=== PATIENT | female | born 1970 | race Caucasian/White ===

== ENCOUNTER → 2017-11-24 | Outpatient (CLI) | payer BC ==
[~2017-11-24] MED LIST: AMARYL4 MG PO; COZAAR 25 MG TA25 M2 PO; GLUCOTROL5 MG PO; IBUPROFEN 800800 M1 PO; LIPITOR 20 MG T20 M1 PO; NAPROSYN500 MG PO; NORFLEX100 MG PO; SERTRALINE HCL50 MG PO; TYLENOL EXTRA500 MG PO; VICTOZA0.6 MG/0.1 SUBQ
--- NOTE | ~2017-11-24 | O ---
[facility] [address] [address] OPERATIVE REPORT Name: JOANA SHEPPARD Room #: REG [facility].#: [id number] Admission: 11/24/17 Attend Phys: Freddie Renee MD Discharge: Date of : 68 Report #: [id number] THIS REPORT FOR: //name// CC: [facility] physician/PCP Freddie Renee CLINICAL HISTORY: A 47-year-old white female with moderate mediastinal adenopathy. Diagnostic bronchoscopy was performed. POSTOPERATIVE DIAGNOSIS: Normal airways. DESCRIPTION OF PROCEDURE: Following obtained consent and risks and benefits being explained to the patient, which include infection, bleeding and pneumothorax, the procedure performed in the endoscopy suite. The patient received 2% aerosolized lidocaine therapy along with 1% and 2% to the upper airways. She was also given total of 4 mg of Versed, 100 mcg of fentanyl IV push. Then, a flexible fiberoptic bronchoscope was then introduced through the left naris without difficulty. Epiglottis was normal. Vocal cords normal. Trachea was normal. Mouna was normal. Left mainstem bronchus, left upper lobe and left lower lobe was normal. Right mainstem bronchus, right upper lobe, right middle lobe and right lower lobe was normal. Transbronchial needle aspirate biopsy was performed in the subcarinal area. There were approximately 7 passes. We were able to obtain adequate specimen on 5 of the passes. There was very minimal bleeding noted on the needle aspirate biopsy. Otherwise, no complications noted. Vital signs and saturation throughout the study were within normal range. The bronchial needle aspirate specimens will be sent for cytology. There were approximately 5 slides made. <ELECTRONICALLY SIGNED> By: Freddie Renee MD 11/25/17 1518 1828 10 Freddie Renee MD /nt
--- NOTE | ~2017-11-24 | PATH ---
[facility] [address] [place] [address] PATHOLOGY RPT PROCEDURE Name: JOANA SHEPPARD Room #: REG [facility]..#: [id number] Admission: 11/24/17 Date of : 68 Discharge: Report #: [id number] Path Case #: [id number] Note [facility] Accession Number: [id number] TESTS RESULT FLAG UNITS REF RANGE LAB Clinician Provided Cytology Information No. of containers..01 Slide Source: SUBCARNIA NEEDLE DIAGNOSIS: 02 SUBCARINA NEEDLE ASPIRATE NEGATIVE FOR MALIGNANT CELLS. SCANT CELLULARITY. REACTIVE BRONCHIAL CELLS ARE PRESENT. Signed out by: 02 Isabel Gilliam MD, Pathologist NPI- [id number] Performed by: 01 Paulie Mae, Laborer Driver (ASCP) FLAG LEGEND: L-Low Normal,H-High Normal,LL-Alert Low,HH-Alert High <-Panic Low,>-Panic High,A-Abnormal,AA-Critical Abnormal Performed at: [address] [place] [address] Elian Mauro MD, [address] [address] Isabel Gilliam MD, Specimen Comment: A courtesy copy of this report has been sent to Specimen Comment: [phone]. Specimen Comment: Report sent to Specimen Comment: A duplicate report has been generated due to demographic updates. Performed at: [address], [place], [place] [id number] MD Elian Mauro MD Phone: [phone]
== END | disposition home or self-care (01) ==
LOC: CATH 07:55
DX: J98.4 Other disorders of lung (principal); R59.0 Localized enlarged lymph nodes; Z88.8 Allergy status to other drugs, medicaments and biological substances; Z79.899 Other long term (current) drug therapy; Z79.84 Long term (current) use of oral hypoglycemic drugs; Z88.6 Allergy status to analgesic agent; Z98.890 Other specified postprocedural states

== ENCOUNTER → 2017-12-29 | Outpatient (CLI) | payer BC ==
[~2017-12-29] VITALS: Ht 162.6 cm; Wt 103.4 kg
[~2017-12-29] MED LIST changes: +ASPIR 8181 MG PO; +NAPROSYN500 M1 PO; +ORPHENADRINE C100 M2 PO; +PERCOCET PO; +PLAVIX 75 MG TA75 M1 PO; +PREDNISONE 20 M20 MG PO; +TRAZODONE HCL50 MG PO; +ZOLOFT50 M1 PO
--- NOTE | ~2017-12-29 | CATHLAB ---
[facility] [address] [place] [address] INVASIVE PROCEDURE REPORT Name: JOANA SHEPPARD Room #: REG [facility]#: [id number] Admission: 12/29/17 Attend Phys: Hermann Hollwoay Discharge: Date of : 68 Date of Service: 01/03/18 1402 Report #: [id number] THIS REPORT FOR: //name// APPROVED REPORT Study performed: 12/29/2017 10:21:25 Patient Details Patient Status: Out-Patient Room #: The patient is a 47 year-old female Event Personnel Hermann Ch Recenterer, Ninoska Chin RTR, BUSINESS SERVICES SPECIALIST SALES Monitor, Vic English RN, Erendira Suggs Scrub Procedures Performed Art Access - R femoral artery* 86714 Initial Mod Sed Same Phys/QHP Gr5y 955121 Hemostasis with Manual pressure Left Heart Cath w/or w/o Coronaries [id number] [facility], supervision of conscious sedation Indication Dyspnea, Positive stress test Procedure Narrative The Right Groin^ was infiltrated with 1% Lidocaine subcutaneous anesthesia. A PINNACLE 4FR Sheath #[id number] sheath was inserted into the RFA^. Coronary angiography was performed using coronary diagnostic catheters. The right coronary system was accessed and visualized with a JR4 catheter. The left coronary system was accessed and visualized with a JL4 catheter. The left ventricle was accessed and visualized with a JR4 catheter. Left ventricular/Aortic Valve gradient assessed via catheter pullback. Hemostasis was obtained with manual pressure following sheath removal without any complications. The patient tolerated the procedure well and there were no complications associated with the procedure. There was no hematoma. Intraoperative Conscious Sedation Sedation start time: 11:10 Case end Time: 11:38 Versed 3 mg Fluoro Time: 1.28 minutes Dose: DAP 3217.20 cGycm2 451 mGy [facility] [place] [address] INVASIVE PROCEDURE REPORT Name: JOANA SHEPPARD Room #: REG [facility].#: [id number] Admission: 12/29/17 Attend Phys: Hermann Holloway Discharge: Date of : 68 Date of Service: 01/03/18 1402 Report #: [id number] Contrast Type and Amount: Omnipaque 40 ml Coronary Angiography The patient's coronary anatomy is right dominant. Diagnostic Cath Left Main Normal origin moderate to large caliber bifurcates that anterior descending left circumflex coronary arteries. His free of high-grade disease. LAD Small to moderate caliber type II vessel which courses in the anterior interventricular sulcus towards the apex. And terminates as a small string-like vessel at the apex. No high-grade lesions are noted. Diagonal 1 Small-caliber vessel coursing on the anterolateral wall free of high-grade disease Diagonal 2 Small-caliber vessel, sitting along the mid anterolateral lateral wall without significant lesions noted Circumflex Moderate caliber vessel normal origin and gives a large lateral marginal wall branch which is tortuous in its course for free of high-grade disease. The circumflex proper then continues posteriorly in the AV groove terminating as a small caliber posterior wall vessel OM1 Moderate caliber vessel tortuous in its course free of high-grade disease Right Coronary Monitor large-caliber vessel of normal origin coursing the AV groove giving at this small RV marginal branches and continues posteriorly to the crux of the heart small posterior descending artery and small posterior circulation R PDA Small-caliber nonobstructive did vessel coursing towards the apex Left Ventriculography Left Ventriculography was not performed. Hemodynamics The aortic pressure is 107/84 mmHg with a mean of 96 mmHg. The left ventricular pressure is 117/10 mmHg with a mean of mmHg. The left ventricular end diastolic pressure is 21 mmHg. Conclusion 1. Essentially normal coronary arteries with rapidly tapering LAD which may be a normal variant 2. Normal hemodynamics [facility] [address] [place] [address] INVASIVE PROCEDURE REPORT Name: JOANA SHEPPARD BYRON Room #: REG [facility]#: [id number] Admission: 12/29/17 Attend Phys: Heramnn Holloway Discharge: Date of : 68 Date of Service: 01/03/18 1402 Report #: [id number] Recommendations Cardiac Risk Reduction Program <ELECTRONICALLY SIGNED> By: Hermann Ch MD 01/03/18 140 01 01 Hermann Ch MD /INF
[2017-12-29 09:43] VITALS: BP 103/65
[2017-12-29 09:47] LABS: HEMATOCRIT 46.6 % (37.0-47.0); HEMOGLOBIN 16.1 gm/dL (12.0-15.0); MCH 30.8 pg (26.0-34.0); MCHC 34.4 g/dL (28.0-37.0); MCV 89.5 fL (80.0-100.0); RBC 5.21 mil/uL (4.20-5.00); RDW 13.4 % (10.5-14.5); WBC 4.6 thou/uL (4.0-11.0)
[2017-12-29 09:53] LABS: CALCIUM 9.7 mg/dL (8.5-10.1); CREATININE 0.8 mg/dL (0.6-1.0)
[2017-12-29 10:00] LABS: POTASSIUM 4.1 mmol/L (3.5-5.1)
== END | disposition home or self-care (01) ==
LOC: CATH 09:19
PROVIDERS: Internal Medicine
DX: I25.10 Atherosclerotic heart disease of native coronary artery without angina pectoris (principal); I10 Essential (primary) hypertension; E11.9 Type 2 diabetes mellitus without complications; R59.0 Localized enlarged lymph nodes; F32.9 Major depressive disorder, single episode, unspecified; F17.210 Nicotine dependence, cigarettes, uncomplicated; Z98.890 Other specified postprocedural states; Z79.899 Other long term (current) drug therapy; Z88.8 Allergy status to other drugs, medicaments and biological substances; Z90.710 Acquired absence of both cervix and uterus; Z79.4 Long term (current) use of insulin; Z79.84 Long term (current) use of oral hypoglycemic drugs; Z82.49 Family history of ischemic heart disease and other diseases of the circulatory system

== ENCOUNTER 2018-01-08 05:34 | Day surgery (SDC) | payer BC ==
[~2018-01-08] VITALS: Ht 162.6 cm; Wt 105.7 kg
--- NOTE | ~2018-01-08 | PATH ---
[facility] [place] [address] PATHOLOGY RPT PROCEDURE Name: FATEMEH WILEY Room #: DEP [facility] M.R.#: [id number] Admission: 01/08/18 Date of : 68 Discharge: 01/08/18 Report #: [id number] Path Case #: [id number] [facility] Accession Number: [id number] . 01 Material submitted: . PART A: MEDIASTINAL LYMPH NODE-FS PART B: PARATRACHEAL LYMPH NODES . 01 Clinical history: . Lymphadenopathy. The patient is undergoing mediastinoscopy. Please refer to the requisition for details. . 02 Diagnosis: A. Lymph node (1), mediastinal lymph node, biopsy: - Effaced by non-necrotizing granulomatous inflammation (please see comment). . B. Lymph node (1), paratracheal lymph nodes #2, biopsy: - One minute lymph node showing non-necrotizing granuloma. - Specimen predominantly (90%) comprised of mature adipose tissue, vessels and nerves. . (IUV:at;01/10/2018) QTA/01/10/2018 . 02 Comment: Examination shows lymph node parenchyma completely effaced by non-necrotizing granulomatous inflammation. The differential diagnosis for the histomorphology includes sarcoidosis, medications, mycobacterial infection, fungal infection, parasitic infection, as well as foreign material. . Acid-fast bacillus and Gomori methenamine silver stains performed on A1 are negative for mycobacterial as well as fungal elements, respectively. . Portion of the specimen was submitted for flow cytometric analysis and sent to [facility] (case #[id number]). The analysis is negative for a lymphoid neoplasm. Please refer to a separate report for complete details. . Please correlate clinically and follow up as indicated. . (IUV:at;01/10/2018) . 02 Electronically signed: . Isabel Gilliam MD, Pathologist NPI- [id number] [place] [address] PATHOLOGY RPT PROCEDURE Name: FATEMEH WILEY BYRON [facility]#: [id number] Admission: 01/08/18 Date of : 68 Discharge: 01/08/18 Report #: [id number] Path Case #: [id number] . 01 Gross description: . A. Received fresh from the OR labeled with the patient's name, "mediastinal lymph nodes" consists of an oval 0.6 cm red-mcclain fragment of tissue. Sectioning shows yellow-mcclain lymph node parenchyma. Test preparations are made to confirm the stains labeled as TPA. Specimen at this point is sectioned into 3 pieces. One tiny portion is submitted in RPMI medium and sent for flow cytometric analysis to [facility]. Remainder is sectioned into 2 pieces and submitted for permanent sections only as A1. Special stains are ordered as well. (IUV:at;01/09/2018) . B. The specimen is received in formalin, labeled "Wiley, Fatemeh, paratracheal lymph nodes #2", are two irregular fragments of yellow lobulated soft tissue measuring 0.6 x 0.4 x 0.2 cm and 0.5 x 0.4 x 0.2 cm, entirely submitted in B1. (SWS; 01/08/2018) . . FROZEN SECTION DIAGNOSIS: (Isabel Gilliam MD) . TPA1, mediastinal lymph nodes, biopsy: - Lymph node present. . These findings are discussed with Dr. Laureano in OR 7 at [facility] and a written report is placed in the patient's chart. . Frozen section performed at [facility], [address] [place] [address], [place] [address]. SHS/ . 02 Pathologist provided ICD-10: I88.0, I88.8, R59.9 . 02 CPT . 352133, 408353, 496883, 331977, 380512 Specimen Comment: A courtesy copy of this report has been sent to Specimen Comment: [phone], . Specimen Comment: Report sent to / DR IRVING Performed at: [address], [place], [place] [id number] MD Elian Mauro MD Phone: [phone] Performed at: 02 [facility] [address] [place], [place] [id number] MD Isabel Gilliam MD Phone: [phone]
[~2018-01-08 05:34] MED LIST changes: -PERCOCET PO
[2018-01-08 07:40] LABS: URINE BILIRUBIN NEGATIVE (Negative); URINE BLOOD NEGATIVE (Negative); URINE CLARITY CLEAR; URINE COLOR YELLOW; URINE GLUCOSE-RANDOM* NEGATIVE (Negative); URINE KETONES NEGATIVE (Negative); URINE LEUKOCYTES NEGATIVE (Negative); URINE NITRITE NEGATIVE (Negative); URINE PROTEIN (DIPSTICK) NEGATIVE (Negative); URINE SPECIFIC GRAVITY <= 1.005 (1.005-1.035); URINE UROBILINOGEN 0.2 E.U./dl (0.2-1.0)
[2018-01-08 07:42] LABS: ABSOLUTE NEUTROPHILS 3.7 thou/uL (1.4-8.2); BASOPHILS 0.7 % (0.0-2.0); EOSINOPHILS 2.5 % (0.0-3.0); HEMATOCRIT 42.9 % (37.0-47.0); HEMOGLOBIN 15.3 gm/dL (12.0-15.0); LYMPHOCYTES 32.6 % (24.0-44.0); MCH 31.4 pg (26.0-34.0); MCHC 35.6 g/dL (28.0-37.0); MCV 88.1 fL (80.0-100.0); MONOCYTES 9.6 % (1.0-8.0); PLATELET COUNT 201 thou/uL (150-400); POLYS 54.6 % (36.0-66.0); RBC 4.88 mil/uL (4.20-5.00); RDW 13.4 % (10.5-14.5); WBC 6.7 thou/uL (4.0-11.0)
[2018-01-08 07:57] LABS: CALCIUM 9.2 mg/dL (8.5-10.1); CREATININE 0.7 mg/dL (0.6-1.0); POTASSIUM 4.1 mmol/L (3.5-5.1)
[2018-01-08 08:00] VITALS: BP 112/73
[2018-01-08 08:01] LABS: ALBUMIN 3.7 g/dL (3.4-5.0); TOTAL BILIRUBIN 0.6 mg/dL (<0.1-1.0); TOTAL PROTEIN 7.5 g/dL (6.4-8.2)
[2018-01-08] MEDS ORDERED: PERCOCET PO (11:14)
[2018-01-08 11:21] VITALS: BP 112/73
[2018-01-08 22:09] LABS: GLYCOHEMOGLOBIN (HGB A1C) 8.6 % (4.8-5.6)
== END 2018-01-08 12:45 | disposition home or self-care (01) ==
LOC: TBA 05:34 → OR 05:34
PROVIDERS: Thoracic Surgery (Cardiothoracic Vascular Surgery)
DX: I88.8 Other nonspecific lymphadenitis (principal); I88.0 Nonspecific mesenteric lymphadenitis; E66.01 Morbid (severe) obesity due to excess calories; I25.10 Atherosclerotic heart disease of native coronary artery without angina pectoris; E11.9 Type 2 diabetes mellitus without complications; Z88.6 Allergy status to analgesic agent; Z90.710 Acquired absence of both cervix and uterus; Z79.82 Long term (current) use of aspirin; Z79.899 Other long term (current) drug therapy; Z79.891 Long term (current) use of opiate analgesic; Z68.41 Body mass index [BMI] 40.0-44.9, adult
CPT/HCPCS: 50010; 50101; 50386; 50417; 51301; 54118; 56524; 56526; 65020; 65040; 65043; 70005